=== PATIENT | female | born 1955 | race Caucasian/White ===

== ENCOUNTER 2017-04-18 13:45 | Emergency (ER) | payer BC ==
[2017-04-18 14:03] VITALS: BP 142/89; PULSE 92; TEMP 98.3; BMI 27.3
--- NOTE | 2017-04-18 14:22 | PDOC ---
History of Present Illness - General Chief Complaint: Pain Stated Complaint: RIGHT SHOULDER PAIN - History of Present Illness Initial Comments: 04/18/17 14:16 61 yo F with h/o HTN, COPD, CAD, who presents with right shoulder pain. Pt. reports increasing dull, unrelenting, right shoulder pain over the past 2 weeks that has progressed in severity, and duration. States that right shoulder pain now radiates from right shoulder to left shoulder and left sided/neck jaw. Denies repetitive lifting, straining, heavy lifting, or shoulder trauma. Shoulder pain wakes her from sleep and worse in morning and night occasionally. Right sided shoulder pain aggravated with weight bearing and movement. Jaw pain aggravated with chewing, speaking, and sometimes swallowing. Right side jaw pain is also associated with ear pain/stuffiness, without hearing loss, or tinnitus. Pt. denies any numbness/tingling, or weakness in bilateral extremities. Complains of mild right sided hand/wrist swelling and venous engorgement. Pt. has chronic cough, and denies [facility], chest pain, back pain, lightheadedness, SOB, N/V, fevers/chills, vision disturbances, or lower extremity pain/weakness. Shoulder pain is refractory to OTC analgesia, icy hot, heat therapy. Pt. recently evaluated at outside hospital for chest and shoulder pain. Following stress echocardiography pt. received cardiac catherization revealing non occlusive coronary artery disease. Endorses tobacco use 1ppd for 30+ years. 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 Past History - Past Medical History Allergies/Adverse Reactions: Allergies Allergy/AdvReac Type Severity Reaction Status Date / Time naproxen sodium Allergy Difficulty Verified 12/08/15 08:55 [From Anaprox] Breathing tetracycline [Tetracycline] Allergy Verified 12/08/15 08:55 Home Medications: Ambulatory Orders Acetaminophen [Tylenol Extra Strength] 1,000 mg PO PRN PRN 04/18/17 Albuterol Sulfate Inhaler - [Ventolin Hfa Inhaler -] 1 - 2 inh PO QID PRN Aspirin Coated [Ecotrin -] 81 mg PO DAILY 04/18/17 Atorvastatin Ca [Lipitor] 80 mg PO HS 04/18/17 Nebivolol HCl [Bystolic] 2.5 mg PO HS 04/18/17 Oxycodone HCl/Acetaminophen [Percocet 5-325 mg Tablet] 1 tab PO Q6H PRN #12 tablet MDD 4 Tabs 04/18/17 Asthma: Yes (chronic bronchitis) Cardiac Disorders: Yes (Nonobstructive CAD) COPD: Yes Suicide Attempt (Hx): No - Surgical History Cholecystectomy: Yes (Also an incisional hernia repair) - Psycho/Social/Smoking Cessation Hx Anxiety: No Suicidal Ideation: No Smoking Status: Yes Smoking History: Current every day smoker Have you smoked in the past 12 months: Yes Number of Cigarettes Smoked Daily: 5 Information on smoking cessation initiated: Yes 'Breaking Loose' booklet given: 12/08/15 Hx Alcohol Use: No Drug/Substance Use Hx: No Substance Use Type: None Review of Systems - Review of Systems Comments:: 04/18/17 14:49 GENERAL/CONSTITUTIONAL: No fever or chills. No weakness. HEAD, EYES, EARS, NOSE AND THROAT: No change in vision. No ear pain or discharge. No sore throat. CARDIOVASCULAR: No chest pain or shortness of breath RESPIRATORY: + cough. No wheezing, or hemoptysis. GASTROINTESTINAL: No nausea, vomiting, diarrhea or constipation. GENITOURINARY: No dysuria, frequency, or change in urination. MUSCULOSKELETAL: + joint and muscle pain. + neck pain. No back pain. SKIN: No rash NEUROLOGIC: No headache, vertigo, loss of consciousness, or change in strength/ sensation. ENDOCRINE: No increased thirst. No abnormal weight change HEMATOLOGIC/LYMPHATIC: No anemia, easy bleeding, or history of blood clots. ALLERGIC/IMMUNOLOGIC: No hives or skin allergy. *Physical Exam - Vital Signs Last Vital Signs Temp Pulse Resp BP Pulse Ox 98.3 F 92 H 18 142/89 96 04/18/17 13:46 04/18/17 13:46 04/18/17 13:46 04/18/17 13:46 04/18/17 13:46 - Physical Exam Comments: 04/18/17 14:43 GENERAL: Awake, alert, and fully oriented, in no acute distress HEAD: No signs of trauma, normocephalic, atraumatic EYES: PERRLA, EOMI, sclera anicteric, conjunctiva clear ENT: Auricles normal inspection, hearing grossly normal, nares patent, oropharynx clear without exudates. Moist mucosa Mandible: absent TMJ crepitus, clicking, swelling, or effusion. Normal joint laxity and active/passive range of motion. NECK: Normal ROM, supple, no lymphadenopathy, JVD, or masses LUNGS: No distress, speaks full sentences, clear to auscultation bilaterally HEART: Regular rate and rhythm, normal S1 and S2, no murmurs, rubs or gallops, peripheral pulses normal and equal bilaterally. ABDOMEN: Soft, nontender, normoactive bowel sounds. No guarding, no rebound. No masses EXTREMITIES: BL shoulder with strenght intact. Pain with passive and active range of motion.TTP at right deltoid. Clear to inspection. Normal inspection, Normal range of motion, no edema. No clubbing or cyanosis. NEUROLOGICAL: Cranial nerves II through XII grossly intact. Normal speech, normal gait, no focal sensorimotor deficits SKIN: Warm, Dry, normal turgor, no rashes or lesions noted. ED Treatment Course - LABORATORY CBC & Chemistry Diagram: 04/18/17 15:25 04/18/17 15:25 - RADIOLOGY Radiograph Interpretation: 04/18/17 17:27 EXAM#: TYPE/EXAM: RESULT: [id number] US/DUPLEX VASCUL US-1 ARM Right upper extremity venous ultrasound Clinical information: right arm pain. possible DVT The exam was performed utilizing grayscale as well as color flow and spectral Doppler sonography. Visualization is limited due to the patient's inability to cooperate in regards to optimal positioning as a result of marked shoulder pain as reported by the cardiology technologist. No obvious DVT is seen involving the right internal jugular, subclavian, axillary, brachial , radial or ulnar veins. There is no obvious evidence of thrombosis involving the superficial cephalic or basilic veins. Impression: Limited exam as discussed above. No obvious DVT is identified involving the right arm. Reported By: Elías Sparrow MD 04/18/17 0955 Roderick Ervin Medical Decision Making - Medical Decision Making 04/18/17 14:35 61 yo F with h/o HTN, COPD, CAD, who presents with right shoulder pain. Complains of right shoulder pain over the past 2 weeks radiating to left shoulder and left sided neck/jaw. Shoulder pain aggravated with weight bearing and movement. Jaw pain aggravated with chewing, speaking, and sometimes swallowing. Pt. denies extremity weakness or numbness/tingling. Denies any other associated symptoms. Physical exam reveals ttp at right shoulder and decreased active ROM 2/2 to pain. Normal TMJ ROM and laxity, with absent crepitus or swelling. Pt. recently evaluated at outside hospital for chest and shoulder pain. Following stress echocardiography pt. received cardiac catherization revealing non occlusive coronary artery disease. DDx: Calcific tendonitis, DVT UE, Polymalgia rheumatica, temporal arteritis, TMJ disease, ACS/DC, ED Course: CBC, CMP,Cardiac labs, ESR/CRP Shoulder RT Duplex Vasculitis 04/18/17 16:14 Trop: Neg CMP: Neg CBC: WBC 13 04/18/17 17:00 CRP Negative 04/18/17 17:24 ESR/CRP: unremarkable 04/18/17 17:25 Right Arm Duplex: No obvious DVT is identified involving the right arm. Discussed with patient orthopedic referral and pain management. *DC/Admit/Observation/Transfer Diagnosis at time of Disposition: Shoulder pain, right Qualifiers: Chronicity: chronic Qualified Code(s): M25.511 - Pain in right shoulder - Discharge Dispostion Disposition: HOME Condition at time of disposition: Good Admit: No - Prescriptions Prescriptions: Oxycodone HCl/Acetaminophen [Percocet 5-325 mg Tablet] 1 tab PO Q6H PRN #12 tablet MDD 4 Tabs PRN Reason: Pain Level 6-10 - Referrals Referrals: Luis Brannon MD [Primary Care Provider] - Bharath Rendon MD [Staff Physician] - - Patient Instructions Printed Discharge Instructions: DI for Shoulder Pain Additional Instructions: Please follow up with outpatient orthopedics for right shoulder pain and continue pain management as tolerated.
--- NOTE | 2017-04-18 14:54 | PDOC ---
Attending Attestation - Resident Resident Name: Roderick Ervin - ED Attending Attestation I have performed the following: I have examined & evaluated the patient, The case was reviewed & discussed with the resident, I agree w/resident's findings & plan, Exceptions are as noted - HPI HPI: 61 yo F hx CAD presents with R shoulder pain. She denies any trauma. She states initially it was painful to extend it overhead, but it has progressively worsened, now she can barely extend it forwards. She denies weakness, numbness. She has noticed recently that the veins are bulging in the right hand. - Physicial Exam PE: GENERAL: Awake, alert, and fully oriented, in no acute distress HEAD: No signs of trauma EYES: PERRLA, EOMI, sclera anicteric, conjunctiva clear ENT: Auricles normal inspection, hearing grossly normal, nares patent, oropharynx clear without exudates. Moist mucosa NECK: Normal ROM, supple, no lymphadenopathy, JVD, or masses LUNGS: Breath sounds equal, clear to auscultation bilaterally. No wheezes, and no crackles HEART: Regular rate and rhythm, normal S1 and S2, no murmurs, rubs or gallops ABDOMEN: Soft, nontender, normoactive bowel sounds. No guarding, no rebound. No masses EXTREMITIES: R shoulder ROM limited by pain. +Point tenderness to the anterior deltoid region. Distal pulses intact. Hand is warm to palpation. Remainder of extremities with normal range of motion, no edema. No clubbing or cyanosis. No cords, erythema, or tenderness NEUROLOGICAL: Cranial nerves II through XII grossly intact. Normal speech, normal gait SKIN: Warm, Dry, normal turgor, no rashes or lesions noted. - Medical Decision Making DDx includes calcific tendinitis, DVT, shoulder impingement, or possibly an atypical presentation of an NE. Will obtain bloodwork, XR, and DVT study.
[2017-04-18 15:37] LABS: BASOPHIL 1.4 % (0-2.0); MCH 31.5 pg (25.7-33.7); MCHC 33.1 g/dl (32.0-36.0); MEAN CELL VOLUME 95.2 fl (80-96); MEAN PLT VOLUME 8.3 fl (7.5-11.1); NEUTROPHILS 73.3 % (42.8-82.8); PLATELET COUNT 320 K/MM3 (134-434); RDW 14.3 % (11.6-15.6)
[2017-04-18 16:00] LABS: ALBUMIN 4.8 g/dl (3.5-5.0); ALK PHOS 94 U/L (32-92); ANION GAP 8 (8-16); BILIRUBIN,TOTAL 0.6 mg/dl (0.2-1.0); CALCIUM 9.6 mg/dl (8.4-10.2); CO2 27 mmol/L (22-28); CPK 63 IU/L (26-192); CREATININE 0.8 mg/dl (0.6-1.3); GLUCOSE,RANDOM 105 mg/dl (74-106); SGOT/AST 28 U/L (10-42); SGPT/ALT 26 U/L (10-40); TOT PROT 7.3 g/dl (6.4-8.3)
[2017-04-18 16:10] LABS: TROPONIN I (DFP) < 0.03 ng/ml (0.03-0.50)
[2017-04-18 16:53] LABS: C-REACTIVE PROTEIN < 0.3 MG/DL (0.00-0.3)
--- NOTE | 2017-04-19 19:40 | EKG ---
Test Reason : Blood Pressure : / mmHG Vent. Rate : 067 BPM Atrial Rate : 067 BPM P-R Int : 132 ms QRS Dur : 078 ms QT Int : 382 ms P-R-T Axes : 040 058 085 degrees QTc Int : 403 ms BASELINE ARTIFACTS SINUS RHYTHM LEFT ATRIAL ENLARGEMENT NONSPECIFIC T WAVE ABNORMALITY ABNORMAL ECG WHEN COMPARED WITH ECG OF 25-MAY-2002 12:17, ST-T ABNORMALITIES ARE MORE PRONOUNCED IN V5-V6 REPEAT EKG IF CLINICALLY INDICATED Confirmed by EDUIN GARCIA MD ([id number]) on 04/19/2017 7:39:47 PM Referred By: MELLO Confirmed By:EDUIN GARCIA MD
== END 2017-04-18 18:14 | disposition home or self-care (01) ==
LOC: FER 13:45
DX: M25.511 Pain in right shoulder (principal); I10 Essential (primary) hypertension; J44.9 Chronic obstructive pulmonary disease, unspecified; I25.10 Atherosclerotic heart disease of native coronary artery without angina pectoris; F17.210 Nicotine dependence, cigarettes, uncomplicated
CPT/HCPCS: 36415; 73030-TC-RT; 80053; 84484; 85025; 85651; 86140; 93005; 93971; 99282-25

== ENCOUNTER 2017-09-07 08:51 | Emergency (ER) | payer BC ==
[2017-09-07 08:56] VITALS: BP 148/61; PULSE 90; TEMP 97.7; BMI 28.1
[2017-09-07] MEDS ORDERED: ACETAMINOPHEN 500 MG TABLET (FP) PO ONE (09:58)
[2017-09-07] MEDS ORDERED: ACETAMINOPHEN 500 MG TABLET (FP) ONE (10:00)
--- NOTE | 2017-09-07 10:02 | PDOC ---
History of Present Illness - General Chief Complaint: Injury Stated Complaint: FALL Time Seen by Provider: 09/07/17 09:43 History Source: Patient, Family Exam Limitations: No Limitations - History of Present Illness Initial Comments: 09/07/17 09:59 Slipped on icy stairs falling onto her lower back and coccyx. Complaints of pain to spine and buttocks Occurred: reports: just prior to arrival, this morning Severity: reports: mild Pain Location: reports: lower extremity, pelvis Method of Injury: Yes: fall Modifying Factors: improves with: None Associated Symptoms (Fall): denies symptoms Past History - Travel Traveled outside of the country in the last 30 days: No Close contact w/someone who was outside of country & ill: No - Past Medical History Allergies/Adverse Reactions: Allergies Allergy/AdvReac Type Severity Reaction Status Date / Time naproxen sodium Allergy Difficulty Verified 09/07/17 08:56 [From Anaprox] Breathing tetracycline [Tetracycline] Allergy Verified 09/07/17 08:56 Home Medications: Ambulatory Orders Aspirin Coated [Ecotrin -] 81 mg PO DAILY 04/18/17 Oxycodone HCl/Acetaminophen [Percocet 5-325 mg Tablet -] 1 - 2 tab PO Q4H PRN # 10 tablet MDD 4 09/07/17 Asthma: Yes (chronic bronchitis) Cardiac Disorders: Yes (Nonobstructive CAD) COPD: Yes - Surgical History Cholecystectomy: Yes (Also an incisional hernia repair) - Suicide/Smoking/Psychosocial Hx Smoking Status: Yes Smoking History: Current every day smoker Have you smoked in the past 12 months: Yes Number of Cigarettes Smoked Daily: 7 Information on smoking cessation initiated: No 'Breaking Loose' booklet given: 12/08/15 Hx Alcohol Use: No Drug/Substance Use Hx: No Substance Use Type: None Review of Systems - Review of Systems Able to Perform ROS?: Yes Is the patient limited Arabic proficient: Yes Constitutional: Yes: Symptoms Reported, See HPI. No: Fever, Malaise HEENTM: Yes: See HPI. No: Symptoms Reported Cardiac (ROS): No: Symptoms Reported, Chest Pain ABD/GI: No: Constipated, Diarrhea : No: Symptoms Reported Musculoskeletal: Yes: Symptoms Reported, See HPI, Back Pain, Joint Pain, Muscle Pain Integumentary: Yes: Symptoms Reported, See HPI, Bruising (to mid to low back) Neurological: No: Symptoms reported, Headache All Other Systems: Reviewed and Negative *Physical Exam - Vital Signs Last Vital Signs Temp Pulse Resp BP Pulse Ox 97.7 F 90 20 148/61 98 09/07/17 08:53 09/07/17 08:53 09/07/17 08:53 09/07/17 08:53 09/07/17 08:53 - Physical Exam General Appearance: Yes: Nourished, Appropriately Dressed, Mild Distress, Moderate Distress HEENT: positive: Normal ENT Inspection, TMs Normal, Pharynx Normal Neck: positive: Tender, Supple Respiratory/Chest: positive: Lungs Clear, Normal Breath Sounds Musculoskeletal: positive: Decreased Range of Motion. negative: Normal Inspection Extremity: positive: Normal Capillary Refill. negative: Normal Inspection ( limited secondary to tenderness at waist), Normal Range of Motion (limited secondary to tenderness with ambulation and low back. Has some and tenderness along the paravertebral and vertebral spinous process of L3-4-5 S1 area. No crepitus or step-offs) Integumentary: positive: Dry, Pale, Ecchymosis, Bruising (has superficial abrasion to paravertebral area at T12-L5 at site of impact) Neurologic: positive: dial marker II-XII NML intact, Fully Oriented, Alert, Normal Mood/ Affect, Normal Response Progress Note - Progress Note Progress Note: X-rays show no fractures or dislocations although reveal DJD and some spacing changes between L3-4 and mild scoliosis changes. Urinalysis reveals no pathology or bleeding. We'll treat with NSAIDs and provided #10 Percocet tablets for severe pain. *DC/Admit/Observation/Transfer Diagnosis at time of Disposition: Back contusion Qualifiers: Encounter type: initial encounter Laterality: unspecified laterality Qualified Code(s): S20.229A - Contusion of unspecified back wall of thorax, initial encounter - Discharge Dispostion Disposition: HOME Condition at time of disposition: Stable Admit: No - Prescriptions Prescriptions: Oxycodone HCl/Acetaminophen [Percocet 5-325 mg Tablet -] 1 - 2 tab PO Q4H PRN # 10 tablet MDD 4 PRN Reason: Pain - Referrals Referrals: Elan Gross MD [Primary Care Provider] - - Patient Instructions Printed Discharge Instructions: Easy Bruising (Alternative Therapy), DI for Back Strain or Sprain Additional Instructions: Rest, ice to area on and off for 15 minutes 4-6 times a day Avoid heavy lifting or exercise until pain and swelling is resolved or until further directed Keep area highly elevated to reduce swelling Use splints/Kamari wrap as directed Followup with orthopedist in one to 2 days if not improving, if significantly improved may wait one week for followup with orthopedist May use Tylenol one or 2 tablets every 4-6 hours for mild pain, may use Percocet for severe pain, understanding also has Tylenol so be careful - Post Discharge Activity Forms/Work/School Notes: Back to Work
[2017-09-07 11:02] LABS: URINE APPEARANCE CLEAR; URINE BILIRUBIN NEGATIVE (NEGATIVE); URINE BLOOD NEGATIVE (NEGATIVE); URINE COLOR COLORLESS; URINE GLUCOSE (UA) NEGATIVE (NEGATIVE); URINE KETONE NEGATIVE (NEGATIVE); URINE LEUK ESTERASE TRACE (NEGATIVE); URINE NITRITE NEGATIVE (NEGATIVE); URINE PROTEIN NEGATIVE (NEGATIVE); URINE UROBILINOGEN NEGATIVE mg/dL (0.2-1.0)
[2017-09-07 11:04] LABS: URINE BACTERIA RARE /hpf (NONE SEEN)
== END 2017-09-07 11:20 | disposition home or self-care (01) ==
LOC: JERFT 08:51
DX: S20.229A Contusion of unspecified back wall of thorax, initial encounter (principal); W00.1XXA Fall from stairs and steps due to ice and snow, initial encounter; Y93.89 Activity, other specified; Y92.89 Other specified places as the place of occurrence of the external cause; Y99.8 Other external cause status
CPT/HCPCS: 72100-TC; 81003; 81015; 99281-25

== ENCOUNTER 2018-10-30 11:52 | Emergency (ER) | payer BC ==
[2018-10-30 12:05] VITALS: BP 140/79; PULSE 68; TEMP 98.3; BMI 27.3
--- NOTE | 2018-10-30 12:22 | PDOC ---
History of Present Illness - General Chief Complaint: Chest Pain Stated Complaint: CHEST PAIN Time Seen by Provider: 10/30/18 12:22 History Source: Patient Exam Limitations: No Limitations - History of Present Illness Initial Comments: 10/30/18 12:37 63 yo F with hx HTN, CAD (50% stenosis in unknown branch; done 1.[address] Moran with last stress echo Jun 2018 showing anterior wall dysfunction), and asthma presents to the emergency department with chest pain onset at 7:30 am with no previous episode. Gradual onset, initially 3/10 while at rest worsening with exertion (Currently 9/10). Described as pressure, located in substernal with radiation to thoracic back and bilateral shoulders. Endorses concurrent nausea and SOB. Denies recent travels, hx of DVT/PE, and coagulaopathic disorders. Endorses taking 81 mg of aspirin. Denies the following : headache, FND, visual changes, vomiting, abdominal pain, dysuria, hematuria, diarrhea, hematochezia, and leg pain/swelling. Past History - Past Medical History Allergies/Adverse Reactions: Allergies Allergy/AdvReac Type Severity Reaction Status Date / Time naproxen sodium Allergy Difficulty Verified 10/30/18 12:00 [From Anaprox] Breathing tetracycline [Tetracycline] Allergy Verified 10/30/18 12:00 Home Medications: Ambulatory Orders Aspirin Coated [Ecotrin -] 81 mg PO DAILY 04/18/17 Oxycodone HCl/Acetaminophen [Percocet 5-325 mg Tablet -] 1 - 2 tab PO Q4H PRN # 10 tablet MDD 4 09/07/17 Amlodipine Besylate [Norvasc -] 2.5 mg PO DAILY 10/30/18 Lipitor 80 mg PO HS 10/30/18 Nebivolol [Bystolic -] 5 mg PO HS 10/30/18 Asthma: Yes (chronic bronchitis) Cardiac Disorders: Yes (Nonobstructive CAD) COPD: Yes - Surgical History Cholecystectomy: Yes (Also an incisional hernia repair) - Immunization History Immunization Up to Date: Yes - Suicide/Smoking/Psychosocial Hx Smoking Status: Yes Smoking History: Current every day smoker Have you smoked in the past 12 months: Yes Number of Cigarettes Smoked Daily: 5 Information on smoking cessation initiated: No 'Breaking Loose' booklet given: 12/08/15 Hx Alcohol Use: No Drug/Substance Use Hx: No Substance Use Type: None Review of Systems - Review of Systems Able to Perform ROS?: Yes Is the patient limited Turkmen proficient: No Constitutional: Yes: Weakness. No: Chills, Diaphoresis, Fever HEENTM: No: Eye Pain, Ear Pain, Nose Pain, Throat Pain, Mouth Pain Respiratory: Yes: Shortness of Breath. No: Cough Cardiac (ROS): Yes: Chest Pain. No: Lightheadedness, Palpitations, Syncope, Chest Tightness ABD/GI: Yes: Nausea, Poor Appetite, Poor Fluid Intake. No: Constipated, Diarrhea, Rectal Bleeding, Vomiting, Tarry Stools : No: Burning, Dysuria, Hematuria Musculoskeletal: Yes: Back Pain, Neck Pain. No: Joint Pain Integumentary: No: Erythema, Sweating Neurological: No: Headache, Numbness, Tingling, Tremors, Ataxia, Dizziness Psychiatric: No: Change in Appetite Endocrine: No: Unexplained Weight Gain Hematologic/Lymphatic: No: Anemia *Physical Exam - Vital Signs Last Vital Signs Temp Pulse Resp BP Pulse Ox 98.3 F 68 18 140/79 97 10/30/18 12:00 10/30/18 12:00 10/30/18 12:00 10/30/18 12:00 10/30/18 12:00 - Physical Exam General Appearance: Yes: Nourished, Appropriately Dressed. No: Apparent Distress, Intoxicated, Cachetic HEENT: positive: EOMI, SHANDA, Normal Voice, Symmetrical, Pharynx Normal, Hearing Grossly Normal. negative: Pale Conjunctivae, Scleral Icterus (R), Scleral Icterus (L), Muffled/Hoarse voice, Pharyngeal Erythema, Tonsillar Exudate, Tonsillar Erythema, Excessive drooling Neck: positive: Trachea midline, Supple. negative: Tender, Lymphadenopathy (R) , Lymphadenopathy (L), Tender lateral, Tender midline Respiratory/Chest: positive: Chest Tender, Normal Breath Sounds, Rhonchi ( bilateral bases). negative: Lungs Clear, Respiratory Distress, Accessory Muscle Use Cardiovascular: positive: Regular Rhythm, Regular Rate, S1, S2. negative: Systolic Murmur Gastrointestinal/Abdominal: positive: Normal Bowel Sounds, Tender (RUQ), Flat, Soft. negative: Guarding, Rebound Lymphatic: negative: Adenopathy Musculoskeletal: positive: Normal Inspection. negative: CVA Tenderness, Vertebral Tenderness Extremity: positive: Normal Capillary Refill, Normal Inspection, Normal Range of Motion. negative: Tender, Swelling, Calf Tenderness Integumentary: positive: Normal Color, Dry, Warm Neurologic: positive: cloth inspector II-XII NML intact, Fully Oriented, Alert, Normal Mood/ Affect, Normal Response, Motor Strength 5/5 Moderate Sedation - Procedure Monitoring Vital Signs: Procedure Monitoring Vital Signs Temperature 98.3 F 10/30/18 12:00 Pulse Rate 68 10/30/18 12:00 Respiratory Rate 18 10/30/18 12:00 Blood Pressure 140/79 10/30/18 12:00 O2 Sat by Pulse Oximetry (%) 97 10/30/18 12:00 Heart Score/ECG Review - History History: Moderately suspicious - Electrocardiogram EKG: Normal - Age Age: 45-65 - Risk Factors Risk Factors Heart Score: Yes Hx Hypertension, Yes Smoking History Based on the list above the patient has:: 1-2 risk factors - Troponin Troponin: </= normal limit - Score Heart Score - Total: 3 - ECG Intrepretation Comment:: 10/30/18 13:00 ventricular rate is 64 bpm, OH is 136 ms, QRS 80 ms, QTc is 404 ms, and normal axis. No ST elevation or depressions noted on EKG. NSR ED Treatment Course - LABORATORY CBC & Chemistry Diagram: 10/30/18 12:51 10/30/18 12:51 Medical Decision Making - Medical Decision Making 63 yo F with hx HTN, CAD (50% stenosis in unknown branch; done 1.[address] Moran with last stress echo Jun 2018 showing anterior wall dysfunction), and asthma presents to the emergency department with chest pain onset at 7:30 am with no previous episode concerning for ACS Initial vitals: Initial Vital Signs Temp Pulse Resp BP Pulse Ox 98.3 F 68 18 140/79 97 10/30/18 12:00 10/30/18 12:00 10/30/18 12:00 10/30/18 12:00 10/30/18 12:00 Work up: ddx: ACS vs PNA vs pericarditis vs pleuritis vs pancreatitis vs gastritis Laboratory Tests 10/30/18 10/30/18 10/30/18 12:51 12:51 12:51 WBC 8.5 RBC 4.46 Hgb 14.4 Hct 41.8 MCV 93.7 MCH 32.2 MCHC 34.4 RDW 15.0 Plt Count 296 MPV 8.9 Absolute Neuts (auto) 4.9 Neutrophils % 58.4 Lymphocytes % 28.2 Monocytes % 7.6 Eosinophils % 4.6 H Basophils % 1.2 Nucleated RBC % 0 PT with INR Cancelled INR Cancelled PTT (Actin FS) Cancelled Sodium 139 Potassium 5.1 Chloride 107 Carbon Dioxide 24 Anion Gap 8 BUN 5 L Creatinine 0.8 Creat Clearance w eGFR > 60 Random Glucose 89 Calcium 8.7 Total Bilirubin 0.4 AST 37 ALT 38 Alkaline Phosphatase 110 Creatine Kinase 157 Creatine Kinase Index 0.6 CK-MB (CK-2) 1.0 Troponin I < 0.02 Total Protein 6.9 Albumin 3.9 Lipase 202 Blood Type Antibody Screen 10/30/18 10/30/18 10/30/18 12:52 15:53 15:53 WBC RBC Hgb Hct MCV MCH MCHC RDW Plt Count MPV Absolute Neuts (auto) Neutrophils % Lymphocytes % Monocytes % Eosinophils % Basophils % Nucleated RBC % PT with INR 10.90 INR 0.92 PTT (Actin FS) Sodium Potassium Chloride Carbon Dioxide Anion Gap BUN Creatinine Creat Clearance w eGFR Random Glucose Calcium Total Bilirubin AST ALT Alkaline Phosphatase Creatine Kinase Creatine Kinase Index CK-MB (CK-2) Troponin I < 0.02 Total Protein Albumin Lipase Blood Type A POSITIVE Antibody Screen Negative CXR was within normal limits without Spoke to Dr. Contreras manager economic for Dr. Moran who states that ideally the patient should stay in observation tele, however if trops x2 is negative, she can be closely followed up on an outpatient basis within the next 72 hours. the patient was given the choice and stated she would like to be discharged if the trops are negative for the second time. 10/31/18 12:50 *DC/Admit/Observation/Transfer Diagnosis at time of Disposition: Chest pain Qualifiers: Chest pain type: unspecified Qualified Code(s): R07.9 - Chest pain, unspecified - Discharge Dispostion Disposition: HOME Condition at time of disposition: Fair Decision to Admit order: No - Referrals Referrals: Elan Gross MD [Staff Physician] - Rajeev Shelby MD [Staff Physician] - - Patient Instructions Printed Discharge Instructions: DI for Atypical Chest Pain Additional Instructions: you were seen in the emergency department for chest pain. your troponin levels, which measures cardiac damage, was negative both times. please follow up with your supervisor soldering within 72 hours after discharge for follow up care and management. please return to the emergency department if you have worsening chest pain or new concerning symptoms such as fevers, lightheadedness, worsening pain, or worsening shortness of breath. please see your primary medical doctor 1 week after discharge for follow up care. thank you. - Post Discharge Activity Forms/Work/School Notes: Back to Work
--- NOTE | 2018-10-30 12:41 | PDOC ---
Attending Attestation - Resident Resident Name: James Foy - ED Attending Attestation I have performed the following: I have examined & evaluated the patient, The case was reviewed & discussed with the resident, I agree w/resident's findings & plan - HPI HPI: 10/30/18 14:39 The patient is a 63 year old female, with a past medical history of HTN, CAD, asthma, who presents today for evaluation of chest pain that began around 7:30 am which is radiating to bilateral shoulders and mid thoracic back. Patient notes SOB, diaphoresis, and nausea. she has history of cardiac cath over 1 year ago with nonobstructive CAD noted, with up to 50% blockage in a coronary branch. +current long time smoker. Denies fever, chills, palpitation, dizziness, weakness, N, V, D, abdominal pain , bladder and bowel problems, leg swelling, No sick contacts or travel. No new changes in medications. Allergies: naproxen, tetracycline Past Medical History: HTN, CAD, asthma Social history: Lives with family. Current smoker. No alcohol. No illicit drugs. 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 Moran - Physicial Exam PE: 10/30/18 14:41 NAD, well appearing, PERRL, EOMI, MMM, nl conjunctiva, anicteric; neck supple. lungs clear, RRR, abdomen soft nontender. DOW x4, no focal neuro deficits. No peripheral edema. normal color for ethnicity, WWP. - Medical Decision Making 10/30/18 14:41 hpi as documented VS wnl. reassuring. DDx chest pain: ACS, coronary vasospasm, NSTEMI, arrhythmia, unstable angina, PE , dissection, PUD, esophageal spasm, GERD, gastritis, costochondritis, pneumonia , pleurisy, pericarditis/myocarditis. dehydration, electrolyte/metabolic derangements. EKG normal sinus rhythm at 64 bpm, no interval abnormalities, narrow QRS, ST and T wave segments and morphology normal. Nonspecific T wave abnormalities, unchanged from prior Chest pain HEART score 3 which denotes Low risk and probability for ACS, less than 1% risk for MACE at 30 days. Given risk factors including comorbidities, gender, family and tobacco use. Low suspicion for pulmonary embolism or dissection. as no hypoxia or tachycardia. cards cs with Dr Moran/Diane - can 2 trop, followup as outpatient, as pt does not want to be admitted or observed, 2 trops neg, so less likely cardiac etiology shared decision making at bedside with pt and resident, would prefer to be dc'd with outpatient followup, strict return precautions for worsening cp, sob syncope, neuro changes. ASA administered, pain controlled, remains well during ED stay, no compliants or recurrence of sx, with prior cardiac cath nonobstructive CAD noted and very close cards followup. discussion with patient and family at bedside, questions answered. 10/30/18 15:32 10/30/18 18:02 <Maame Frost - Last Filed: 10/30/18 18:04> Heart Score/ECG Review - History History: Slightly suspicious - Electrocardiogram EKG: Non specific repolarization disturbance - Age Age: 45-65 - Risk Factors Risk Factors Heart Score: Yes Hx Hypertension, Yes Smoking History Based on the list above the patient has:: 1-2 risk factors - Troponin Troponin: </= normal limit - Score Heart Score - Total: 3 #1 ECG reviewed & interpreted by me at: 15:30 General ECG Interpretation: Sinus Rhythm Compared to previous ECG there are: No significant change 10/30/18 15:31 EKG normal sinus rhythm at 64 bpm, no interval abnormalities, narrow QRS, ST and T wave segments and morphology normal. Nonspecific T wave abnormalities, unchanged from prior 10/30/18 15:32 <Maame Frost - Last Filed: 10/30/18 18:04> Attestations - Attestations 10/30/18 14:47 Documentation prepared by Aminah Gomez, acting as nuclear medical technologist for Maame Frost MD. <Aminah Gomez - Last Filed: 10/30/18 14:47> - Attestations Physician Attestation: 10/30/18 15:32 I, Maame Frost MD, attest that this document has been prepared under my direction and personally reviewed by me in its entirety. I further attest, that it accurately reflects all work, treatment, procedures and medical decision -making performed by me. <Maame Frost - Last Filed: 10/30/18 18:04>
[2018-10-30] MEDS ORDERED: ASPIRIN 81 MG CHEWABLE TABLETS PO ONE (12:43)
[2018-10-30] MEDS ORDERED: ACETAMINOPHEN 1000 MG/100 ML VIAL (NON FORMULARY) IVPB ONE (12:43)
[2018-10-30 13:07] LABS: BASO % 1.2 % (0-2.0); EOS % 4.6 % (0-4.5); HEMATOCRIT 41.8 % (32.4-45.2); HEMOGLOBIN 14.4 GM/dL (10.7-15.3); LYMPH % 28.2 % (8-40); MCH 32.2 pg (25.7-33.7); MCHC 34.4 g/dl (32.0-36.0); MEAN CELL VOLUME 93.7 fl (80-96); MEAN PLT VOLUME 8.9 fl (7.5-11.1); MONO % 7.6 % (3.8-10.2); NEUT % 58.4 % (42.8-82.8); PLATELET COUNT 296 K/MM3 (134-434); RBC 4.46 M/mm3 (3.60-5.2); WHITE BLOOD COUNT 8.5 K/mm3 (4.0-10.0)
[2018-10-30] MEDS ORDERED: ASPIRIN 81 MG CHEWABLE TABLETS ONE (13:18)
[2018-10-30] MEDS ORDERED: ACETAMINOPHEN INJECTION 100 ML IVPB ONE (13:18)
[2018-10-30 13:38] LABS: ALBUMIN 3.9 g/dl (3.4-5.0); ALK PHOS 110 U/L (45-117); ANION GAP 8 MMOL/L (8-16); BILIRUBIN,TOTAL 0.4 mg/dL (0.2-1); BLOOD UREA NITROGEN 5 mg/dL (7-18); CALCIUM 8.7 mg/dL (8.5-10.1); CHLORIDE 107 mmol/L (98-107); CO2 24 mmol/L (21-32); CREATININE 0.8 mg/dL (0.55-1.3); GLUCOSE,RANDOM 89 mg/dL (74-106); LIPASE 202 U/L (73-393); POTASSIUM 5.1 mmol/L (3.5-5.1); SGOT/AST 37 U/L (15-37); SGPT/ALT 38 U/L (13-61); SODIUM 139 mmol/L (136-145); TOT PROT 6.9 g/dl (6.4-8.2)
[2018-10-30 16:44] LABS: INR 0.92 (0.83-1.09); PROTHROMBIN TIME (PATIENT) 10.9 SEC (9.7-13.0)
--- NOTE | 2018-10-31 17:17 | EKG ---
Test Reason : Blood Pressure : / mmHG Vent. Rate : 064 BPM Atrial Rate : 064 BPM P-R Int : 136 ms QRS Dur : 080 ms QT Int : 392 ms P-R-T Axes : 065 065 081 degrees QTc Int : 404 ms NORMAL SINUS RHYTHM NORMAL ECG WHEN COMPARED WITH ECG OF 18-APR-2017 15:21, T WAVE INVERSION NO LONGER EVIDENT IN LATERAL LEADS Confirmed by MD DESTINY, SUNI ([id number]) on 10/31/2018 5:17:14 PM Referred By: Confirmed By:SUNI DIXON MD
== END 2018-10-30 17:25 | disposition home or self-care (01) ==
LOC: JER 11:52
PROC: 3E033NZ Introduction of Analgesics, Hypnotics, Sedatives into Peripheral Vein, Percutaneous Approach (ICD-10-PCS; principal; 2018-10-30)
DX: R07.9 Chest pain, unspecified (principal); I10 Essential (primary) hypertension; I25.10 Atherosclerotic heart disease of native coronary artery without angina pectoris; J41.0 Simple chronic bronchitis
CPT/HCPCS: 36415; 71046-TC-FY; 80053; 82550; 82553; 83690; 84484; 85025; 85610; 86850; 86900; 86901; 93005; 93010; 99285-25; J0131

== ENCOUNTER 2023-09-27 19:23 | Emergency (ER) | payer OTHER, BC ==
[2023-09-27 19:48] VITALS: BP 136/84; PULSE 82; RESP 17; TEMP 98.5; BMI 25.4
[2023-09-27] MEDS ORDERED: ACETAMINOPHEN 325 MG TABLET (FP) ONE (21:57)
[2023-09-27] MEDS: ACETAMINOPHEN 325 MG TABLET (FP) PO ONE (22:00)
== END 2023-09-27 22:42 | disposition home or self-care (01) ==
LOC: FER 19:23
DX: M25.562 Pain in left knee (principal)
CPT/HCPCS: 73562-TC-LT-FY; 99283-25